=== PATIENT | female | born 1995 | race Caucasian/White ===

== ENCOUNTER 2019-03-09 15:35 | Emergency (ER) | payer OTHER ==
[~2019-03-09] VITALS: Ht 167.6 cm; Wt 77.1 kg
[2019-03-09 15:36] VITALS: BP 120/70
[2019-03-09] MEDS ORDERED: KEFLEX500 M1 PO (16:55)
== END 2019-03-09 16:45 | disposition home or self-care (01) ==
LOC: ER 15:35
DX: L03.031 Cellulitis of right toe (principal)

== ENCOUNTER 2019-12-25 17:56 | Emergency (ER) | payer OTHER ==
[~2019-12-25] VITALS: Ht 170.2 cm; Wt 85.3 kg
[~2019-12-25 17:56] MED LIST: KEFLEX500 M1 PO
[2019-12-25 18:02] VITALS: BP 140/75
[2019-12-25 18:24] LABS: URINE BILIRUBIN NEGATIVE (Negative); URINE BLOOD NEGATIVE (Negative); URINE CLARITY CLEAR; URINE COLOR YELLOW; URINE GLUCOSE-RANDOM* NEGATIVE (Negative); URINE KETONES NEGATIVE (Negative); URINE LEUKOCYTES-REFLEX NEGATIVE (Negative); URINE NITRITE-REFLEX NEGATIVE (Negative); URINE PROTEIN (DIPSTICK) TRACE (Negative); URINE SPECIFIC GRAVITY >= 1.030 (1.005-1.035); URINE UROBILINOGEN 0.2 E.U./dl (0.2-1.0)
== END 2019-12-25 19:46 | disposition home or self-care (01) ==
LOC: ER 17:56
PROVIDERS: Physician Assistant
DX: N89.8 Other specified noninflammatory disorders of vagina (principal); R30.0 Dysuria; G43.909 Migraine, unspecified, not intractable, without status migrainosus; Z79.899 Other long term (current) drug therapy